=== PATIENT | male | born 1975 | race Hispanic/Latino ===

== ENCOUNTER 2022-06-10 14:15 | Outpatient (CLI) | payer OTHER ==
[~2022-06-10 14:15] MED LIST: Gadobenate Dimeglumine 529 MG/1 ML (20ML VIAL) ONE; Iopamidol 300 61% 100 ML VIAL FS ONE
== END 2022-06-10 14:16 | disposition home or self-care (01) ==
LOC: CSHCT 14:15
PROVIDERS: ATTEND Internal Medicine
DX: C43.9 Malignant melanoma of skin, unspecified (principal); R59.1 Generalized enlarged lymph nodes; R91.1 Solitary pulmonary nodule; R91.8 Other nonspecific abnormal finding of lung field
CPT/HCPCS: 70553; 71260; 74177; A9577; Q9967

== ENCOUNTER 2022-08-04 14:44 | Outpatient (CLI) | payer OTHER ==
[~2022-08-04 14:44] MED LIST changes: -Gadobenate Dimeglumine 529 MG/1 ML (20ML VIAL) ONE; +Magnevist 469MG/ML 20 ML VIAL ONE
== END 2022-08-04 14:45 | disposition home or self-care (01) ==
LOC: CSHCT 14:44
PROVIDERS: ATTEND Internal Medicine
DX: C43.9 Malignant melanoma of skin, unspecified (principal); R91.8 Other nonspecific abnormal finding of lung field; R59.1 Generalized enlarged lymph nodes
CPT/HCPCS: 70553; 71260; 74177; A9579; Q9967

== ENCOUNTER 2023-05-17 14:08 | Outpatient (CLI) | payer OTHER | END 2023-05-17 14:09 | disposition home or self-care (01) | LOC: CSHCP 14:08 | PROVIDERS: ATTEND Internal Medicine | DX: J98.09 Other diseases of bronchus, not elsewhere classified (principal) | CPT/HCPCS: 94060; 94726; 94729; 94760 ==

== ENCOUNTER 2024-02-01 08:49 | Outpatient (CLI) | payer OTHER | END 2024-02-01 08:50 | disposition home or self-care (01) | LOC: CSHCT 08:49 | PROVIDERS: ATTEND Internal Medicine | DX: C43.9 Malignant melanoma of skin, unspecified (principal); R91.8 Other nonspecific abnormal finding of lung field | CPT/HCPCS: 70553; 71260; 74177; 76376 ==

== ENCOUNTER 2024-05-14 09:11 | Outpatient (CLI) | payer OTHER ==
[2024-05-14] MEDS ORDERED: Iopamidol 300 61% 100 ML VIAL FS ONE (10:50)
[2024-05-14] MEDS ORDERED: Magnevist 469MG/ML 20 ML VIAL ONE (11:01)
== END 2024-05-14 09:12 | disposition home or self-care (01) ==
LOC: CSHCT 09:11
PROVIDERS: ATTEND Internal Medicine
DX: C43.9 Malignant melanoma of skin, unspecified (principal); C79.31 Secondary malignant neoplasm of brain; R91.8 Other nonspecific abnormal finding of lung field
CPT/HCPCS: 70553; 71260; 74177; 76376; Q9967

== ENCOUNTER 2024-11-14 09:24 | Outpatient (CLI) | payer OTHER ==
[2024-11-14] MEDS ORDERED: Iopamidol 300 61% 100 ML VIAL FS ONE (12:25)
== END 2024-11-14 09:25 | disposition home or self-care (01) ==
LOC: CSHCT 09:24
PROVIDERS: ATTEND Internal Medicine
DX: C43.9 Malignant melanoma of skin, unspecified (principal); R91.1 Solitary pulmonary nodule
CPT/HCPCS: 70553; 71260; 74177; 76376; Q9967